=== PATIENT | female | born 1960 | race Caucasian/White ===

== ENCOUNTER 2019-08-06 14:34 | Emergency (ER) | payer OTHER ==
[~2019-08-06] VITALS: Ht 154.9 cm; Wt 75.0 kg
[2019-08-06] MEDS ORDERED: ASPIRIN 81MG TABLET PO ONE (16:00)
[2019-08-06 16:36] LABS: BASOPHILS % 0.4 % (0.0-2.0); EOSINOPHILS % 1.5 % (0.0-5.0); HEMATOCRIT. 41.9 % (36.0-48.0); HEMOGLOBIN. 14.2 g/dL (12.0-16.0); LYMPHOCYTES % 28.4 % (20.0-50.0); MEAN CORPUSCULAR VOLUME 94.4 fL (81.0-99.0); MEAN PLATELET VOLUME 10.3 fl (7.4-10.4); MONOCYTES % 6.3 % (2.0-8.0); NEUTROPHILS % 63.4 % (40.0-76.0); PLATELET 194 x1000/uL (130-400); RED BLOOD CELL COUNT 4.43 mill/uL (4.2-5.4); RED CELL DISTRIBUTION WIDTH 12.8 % (11.6-14.6)
[2019-08-06 16:42] LABS: CHLORIDE 109 mEq/L (98-107)
[2019-08-06 21:11] VITALS: BP 124/72
== END 2019-08-07 | disposition short-term general hospital (02) ==
LOC: ER 14:34 → CANBEDREQ 08-07 01:47
DX: R07.9 Chest pain, unspecified (principal); M79.602 Pain in left arm; I10 Essential (primary) hypertension; E11.9 Type 2 diabetes mellitus without complications; Z88.5 Allergy status to narcotic agent; Z88.6 Allergy status to analgesic agent
CPT/HCPCS: 36415; 71045; 80053; 83880; 84484; 85025; 93005; 99285; Z7610